=== PATIENT | female | born 1975 ===

== ENCOUNTER 2018-03-21 20:58 | Emergency (ER) | payer OTHER ==
[2018-03-21 21:32] VITALS: TEMP 98.8
--- NOTE | 2018-03-21 23:35 | ED PDOC ---
HPI: General Adult Time Seen by Provider: 03/21/18 21:18 Chief Complaint (Nursing): Abnormal Labs Chief Complaint (Provider): abnormal labs History Per: Patient History/Exam Limitations: no limitations Onset/Duration Of Symptoms: Days (x1 week ) Current Symptoms Are (Timing): Still Present Recently: Treated By A Physician Additional Complaint(s): Kimberley Smith is a 42 year old female, with a past medical history of anemia and hypothyroidism, who presents to the emergency department for low hemoglobin. Patient states last week she went to Dr. Mathis who did blood work and came back with a hemoglobin of 7. Patient reports feeling tired very easily, she also reports shortness of breath with exertion but feels normal at rest. Patient states she has heavy menstrual periods for long periods of time, last time it lasted x3 weeks and ended one week ago. She denies taking iron pills. She denies any vaginal bleeding, fever, chills, chest pain, dizziness or syncope. No further medical complaints. PMD: Shaik Mathis Past Medical History Reviewed: Historical Data, Nursing Documentation, Vital Signs Vital Signs: Last Vital Signs Temp 98.8 F 03/21/18 21:31 Pulse 67 03/22/18 01:19 Resp 16 03/22/18 01:19 BP 165/78 H 03/22/18 01:19 Pulse Ox 99 03/22/18 04:49 - Medical History PMH: Anemia, Hypothyroidism - Surgical History Surgical History: (x2) - Family History Family History: States: No Known Family Hx - Social History Current smoker - smoking cessation education provided: No Alcohol: None Drugs: Denies - Allergies Allergies/Adverse Reactions: Allergies Allergy/AdvReac Type Severity Reaction Status Date / Time No Known Allergies Allergy Verified 03/21/18 21:30 Review of Systems ROS Statement: Except As Marked, All Systems Reviewed And Found Negative Constitutional: Negative for: Fever, Chills Cardiovascular: Negative for: Chest Pain Respiratory: Positive for: Shortness of Breath (w/ exertion) Genitourinary Female: Negative for: Vaginal Bleeding Neurological: Negative for: Dizziness Physical Exam - Reviewed Nursing Documentation Reviewed: Yes Vital Signs Reviewed: Yes - Physical Exam Appears: Positive for: Non-toxic Head Exam: Positive for: ATRAUMATIC, NORMOCEPHALIC Skin: Positive for: Normal Color, Warm, Dry Eye Exam: Positive for: Normal appearance, EOMI, PERRL Neck: Positive for: Painless ROM, Supple Cardiovascular/Chest: Positive for: Regular Rate, Rhythm. Negative for: Murmur Respiratory: Positive for: Normal Breath Sounds. Negative for: Respiratory Distress Gastrointestinal/Abdominal: Positive for: Normal Exam, Soft. Negative for: Tenderness, Guarding, Rebound Back: Negative for: L CVA Tenderness, R CVA Tenderness, Vertebral Tenderness Extremity: Positive for: Normal ROM (upper and lower extremities). Negative for : Deformity, Swelling Neurologic/Psych: Positive for: Alert, Oriented. Negative for: Motor/Sensory Deficits - Laboratory Results Result Diagrams: 03/22/18 00:04 03/22/18 00:04 - ECG O2 Sat by Pulse Oximetry: 99 (RA) Pulse Ox Interpretation: Normal Medical Decision Making Medical Decision Making: Time: 21:18 Initial Impression: Anemia. Differential diagnosis includes acute on chronic anemia due to dysfunctional uteral bleeding. Initial Plan: --Type and screen --EKG --BMP --CBC w/ differential --PTT --PT --Reevaluation 00:00 -Patient will be endorsed to Dr. Jaimes, pending reevaluation. ----- Scribe Attestation: Documented by Edinson Nicolas, acting as a scribe for Anton Moreno MD. Provider Scribe Attestation: All medical record entries made by the Scribe were at my direction and personally dictated by me. I have reviewed the chart and agree that the record accurately reflects my personal performance of the history, physical exam, medical decision making, and the department course for this patient. I have also personally directed, reviewed, and agree with the discharge instructions and disposition. Disposition - Clinical Impression Clinical Impression: Anemia - Patient ED Disposition Is Patient to be Admitted: Transfer of Care Counseled Patient/Family Regarding: Studies Performed, Diagnosis - Disposition Disposition: Transfer of Care Disposition Time: 12:00 Condition: STABLE Instructions: Anemia Caused by Low Iron, Adult (DC) Forms: [employer] (Nepalese) Print Language: CYPRIOT Patient Signed Over To: Samson Jaimes Handoff Comments: pending reevaluation
--- NOTE | 2018-03-22 00:03 | ED PDOC ---
- Laboratory Results Result Diagrams: 03/22/18 00:04 03/22/18 00:04 - ECG O2 Sat by Pulse Oximetry: 99 (RA) Medical Decision Making Medical Decision Makin:00 -Patient endorsed to me by Dr. Moreno, pending labs. 01:15 -Discussed results with patient. Hgb is improving on its own. Patient advised to follow up with PMD as soon as possible. Patient is well appearing, ambulatory and stable upon discharge. Disposition - Clinical Impression Clinical Impression: Anemia - POA Present On Arrival: None - Disposition Disposition: Routine/Home Disposition Time: 01:15 Condition: STABLE Instructions: Anemia Caused by Low Iron, Adult (DC) Forms: [employer] ([place]) Print Language: ENGLISH
[2018-03-22 00:08] LABS: BASO # 0.1 K/uL (0.0-0.2); BASO % 0.9 % (0.0-2.0); EOS # 0.2 K/uL (0.0-0.7); EOS % 2.3 % (0.0-4.0); HEMOGLOBIN 7.4 g/dL (12.0-16.0); LYMPH # 1.9 K/uL (1.0-4.3); LYMPH % 19.2 % (20.0-40.0); MEAN CELL VOLUME 57.1 fl (81.0-99.0); MEAN CORPUSCULAR HEMOGLOBIN 16.5 pg (27.0-31.0); MEAN CORPUSCULAR HGB CONC 28.9 g/dL (33.0-37.0); MEAN PLATELET VOLUME 9.2 fl (7.2-11.7); NEUT # 6.8 K/uL (1.8-7.0); NEUT % 67.6 % (50.0-75.0); NRBC % 0.2 % (0.0-0.0); RBC 4.48 Mil/uL (3.80-5.20); RED CELL DISTRIBUTION WIDTH 22.3 % (11.5-14.5); WHITE BLOOD COUNT 10.1 K/uL (4.8-10.8)
[2018-03-22 00:25] LABS: PARTIAL THROMBOPLASTIN TIME 30.6 Seconds (25.6-37.1); PROTHROMBIN TIME 11.6 Seconds (9.8-13.1)
[2018-03-22 00:27] LABS: BLOOD UREA NITROGEN 15 mg/dl (7-17); GFR AFRICAN-AMERICAN > 60; GFR NON-AFRICAN AMERICAN > 60
[2018-03-22 01:20] VITALS: BP 165/78; PULSE 67; RESP 16
[2018-03-22 01:25] VITALS: O2SAT 99
--- NOTE | 2018-03-24 11:44 | CARD ---
APPROVED REPORT EKG Measurement Heart [id number] ID [id number] <Conclusion> Normal sinus rhythm Normal ECG
== END 2018-03-22 01:21 | disposition home or self-care (01) ==
LOC: H.ER 20:58
DX: D64.9 Anemia, unspecified (principal); N92.0 Excessive and frequent menstruation with regular cycle; E03.9 Hypothyroidism, unspecified

== ENCOUNTER 2018-03-24 18:08 | Observation (INO) | payer OTHER ==
--- NOTE | 2018-03-24 19:34 | ED PDOC ---
HPI: General Adult Time Seen by Provider: 03/24/18 19:27 Chief Complaint (Nursing): Abnormal Labs Chief Complaint (Provider): abnomral labs History Per: Patient Additional Complaint(s): 42-year-old female presents to emergency department for evaluation of anemia. Patient was seen 3 days ago and had a hemoglobin of 7.4. Prior to being seen 3 days ago she was told by her primary doctor that her hemoglobin was 7.0. Patient complains of fatigue and states that her menstrual cycle began yesterday and since then she feels worse. Patient has long-standing history of abnormal heavy periods. She denies any fever or chills at this time, no chest pain, shortness of breath or dyspnea on exertion. PMD: Dr. Mathis Past Medical History Reviewed: Historical Data Vital Signs: Last Vital Signs Temp 98.6 F 03/24/18 18:28 Pulse 86 03/24/18 18:28 Resp 16 03/24/18 18:28 BP 173/97 H 03/24/18 18:28 Pulse Ox 99 03/24/18 19:41 - Medical History PMH: Anemia, Hypothyroidism - Surgical History Surgical History: (x2) - Family History Family History: States: No Known Family Hx - Living Arrangements Living Arrangements: With Family - Social History Current smoker - smoking cessation education provided: No Alcohol: None Drugs: Denies - Allergies Allergies/Adverse Reactions: Allergies Allergy/AdvReac Type Severity Reaction Status Date / Time No Known Allergies Allergy Verified 03/21/18 21:30 Review of Systems ROS Statement: Except As Marked, All Systems Reviewed And Found Negative Constitutional: Positive for: Other (fatigue). Negative for: Fever, Chills Cardiovascular: Negative for: Chest Pain Respiratory: Negative for: Cough Gastrointestinal: Negative for: Nausea, Vomiting Genitourinary Female: Positive for: Vaginal Bleeding (currently menstruating) Neurological: Positive for: Dizziness. Negative for: Headache Physical Exam - Reviewed Nursing Documentation Reviewed: Yes Vital Signs Reviewed: Yes - Physical Exam Appears: Positive for: Well, Non-toxic, No Acute Distress Skin: Positive for: Normal Color. Negative for: Rash Eye Exam: Positive for: Normal appearance Cardiovascular/Chest: Positive for: Regular Rate, Rhythm Respiratory: Positive for: Normal Breath Sounds. Negative for: Wheezing, Respiratory Distress Gastrointestinal/Abdominal: Positive for: Soft. Negative for: Tenderness, Distended, Guarding, Rebound Extremity: Positive for: Normal ROM Neurologic/Psych: Positive for: Alert, Oriented - ECG O2 Sat by Pulse Oximetry: 99 Pulse Ox Interpretation: Normal Medical Decision Making Medical Decision Makin42 year old female with vaginal bleeding and anemia Plan: CXR EKG CBC CMP PT/PTT Type and crossmatch, 2 units packed RBC's IVF Urine test Urine dip Disposition - Clinical Impression Clinical Impression: Anemia - Patient ED Disposition Is Patient to be Admitted: Transfer of Care - Disposition Disposition: Transfer of Care Disposition Time: 19:46 Condition: FAIR Forms: [employer] (Kazakh) Patient Signed Over To: Dora Holman Handoff Comments: Signed out pending diagnostic testing results and final dispo
[2018-03-24 20:53] LABS: BASO # 0.2 K/uL (0.0-0.2); BASO % 1.8 % (0.0-2.0); EOS # 0.1 K/uL (0.0-0.7); EOS % 1.2 % (0.0-4.0); HEMOGLOBIN 7.7 g/dL (12.0-16.0); LYMPH # 1.9 K/uL (1.0-4.3); LYMPH % 15.1 % (20.0-40.0); MEAN CELL VOLUME 57.1 fl (81.0-99.0); MEAN CORPUSCULAR HEMOGLOBIN 16.2 pg (27.0-31.0); MEAN CORPUSCULAR HGB CONC 28.3 g/dL (33.0-37.0); MONO # 0.9 K/uL (0.0-0.8); MONO % 7.3 % (0.0-10.0); NEUT # 9.3 K/uL (1.8-7.0); NEUT % 74.6 % (50.0-75.0); RBC 4.73 Mil/uL (3.80-5.20); RED CELL DISTRIBUTION WIDTH 22.5 % (11.5-14.5); WHITE BLOOD COUNT 12.5 K/uL (4.8-10.8)
--- NOTE | 2018-03-24 21:01 | ED PDOC ---
- Laboratory Results Result Diagrams: 03/24/18 20:35 03/24/18 20:35 - ECG ECG: Positive for: Viewed By Me (reviewed by ED attending) ECG Rhythm: Positive for: Sinus Rhythm O2 Sat by Pulse Oximetry: 99 - Radiology X-Ray: Viewed By Me X-Ray Interpretation: No Acute Disease - Progress ED Course And Treament: Case endorsed to proposal lead writer from [place] pending labs, admission Consent obtained from patient for blood transfusion Case discussed with Dr. Sullivan, Hospitalist on-call, for admission Disposition - Clinical Impression Clinical Impression: Symptomatic anemia - POA Present On Arrival: None - Disposition Disposition: Admitted as In-Patient Disposition Time: 21:31 Condition: FAIR
[2018-03-24 21:04] LABS: ALB/GLOB RATIO 1.2 (1.0-2.1); ALBUMIN 4.3 g/dL (3.5-5.0); ALT/SGPT 27 U/L (9-52); AST/SGOT 48 U/L (14-36); BLOOD UREA NITROGEN 13 mg/dl (7-17); CALCIUM 8.5 mg/dL (8.4-10.2); GFR AFRICAN-AMERICAN > 60; GFR NON-AFRICAN AMERICAN > 60
[2018-03-24 21:25] LABS: PARTIAL THROMBOPLASTIN TIME 30.5 Seconds (25.6-37.1); PROTHROMBIN TIME 11.5 Seconds (9.8-13.1)
--- NOTE | 2018-03-24 22:26 | CP.PCM.HP ---
History of Present Illness - History of Present Illness History of Present Illness: CC: Anemia This is a 42 year old female with pmh of heavy menstrual bleeding for years, hypothyroidism in the past, who presents to the ED today with the complaint of anemia. The patient was seen in the ED 3 days ago and was found to have a hemoglobin of 7.4. The patient states that she was discharged and since then she has been feeling fatigued and lightheaded, worse today as her menstrual cycle started yesterday. In the ED, she was found to have stable vitals. Hg today is 7.7, HCT 27.0. She also has microcytic anemia consistent with iron deficiency. The patient is being placed on observation overnight for blood transfusion and monitoring. Patient denies chest pain, shortness of breath, fevers, chills, nausea, vomiting, diarrhea, headache. All of the patient's and/ or family's questions were answered at the bedside. PMD: Dr. Mathis Present on Admission - Present on Admission Any Indicators Present on Admission: No History of DVT/PE: No History of Uncontrolled Diabetes: No Review of Systems - Review of Systems Review of Systems: A 12 point review of systems was conducted and found to be negative other than what was mentioned in the HPI. Past Patient History - Infectious Disease Hx of Infectious Diseases: None - Past Medical History & Family History Past Medical History?: Yes Past Family History: Reviewed and not pertinent - Past Social History Smoking Status: Never Smoked Alcohol: None Drugs: Denies - ENDOCRINE/METABOLIC Hx Hypothyroidism: Yes - HEMATOLOGICAL/ONCOLOGICAL Hx Anemia: Yes - PSYCHIATRIC Hx Substance Use: No Meds Allergies/Adverse Reactions: Allergies Allergy/AdvReac Type Severity Reaction Status Date / Time No Known Allergies Allergy Verified 03/21/18 21:30 Physical Exam - Additional Findings Additional findings: Physical exam: Constitutional- cooperative, awake, alert Head- NCAT, PERRL Eye- PERRL, EOMI ENT- normal exam, MMM. Neck- normal inspection, supple, no JVD Respiratory- CTAB, no wheezes rales rhonchi Cardiovascular- RRR, +S1, +S2 no MRG GI/Abdominal- normal bowel sounds, soft, no mass, no hsm Skin- warm, dry Extremities Exam- normal capillary refill, normal inspection Neurological Exam- alert, awake, oriented Psych- normal mood, normal affect Results - Vital Signs Recent Vital Signs: Last Vital Signs Temp 98.6 F 03/24/18 18:28 Pulse 86 03/24/18 18:28 Resp 16 03/24/18 18:28 BP 173/97 H 03/24/18 18:28 Pulse Ox 99 03/24/18 21:31 - Labs Result Diagrams: 03/24/18 20:35 03/24/18 20:35 Labs: Laboratory Results - last 24 hr 03/24/18 03/24/18 03/24/18 19:55 20:35 20:35 WBC 12.5 H RBC 4.73 Hgb 7.7 L Hct 27.0 L MCV 57.1 L MCH 16.2 L MCHC 28.3 L RDW 22.5 H Plt Count 454 H MPV 9.0 Neut % (Auto) 74.6 Lymph % (Auto) 15.1 L [place] % (Auto) 7.3 Eos % (Auto) 1.2 Baso % (Auto) 1.8 Neut # (Auto) 9.3 H Lymph # (Auto) 1.9 [place] # (Auto) 0.9 H Eos # (Auto) 0.1 Baso # (Auto) 0.2 PT INR APTT Sodium 142 Potassium 3.8 Chloride 105 Carbon Dioxide 23 Anion Gap 18 BUN 13 Creatinine 0.5 L Est GFR ( Amer) > 60 Est GFR (Non-Af Amer) > 60 Random Glucose 94 Calcium 8.5 Total Bilirubin 0.8 AST 48 H ALT 27 Alkaline Phosphatase 93 Total Protein 7.9 Albumin 4.3 Globulin 3.6 Albumin/Globulin Ratio 1.2 Blood Type O POSITIVE Antibody Screen Negative Crossmatch See Detail BBK History Checked Patient has bt 03/24/18 20:35 WBC RBC Hgb Hct MCV MCH MCHC RDW Plt Count MPV Neut % (Auto) Lymph % (Auto) [place] % (Auto) Eos % (Auto) Baso % (Auto) Neut # (Auto) Lymph # (Auto) [place] # (Auto) Eos # (Auto) Baso # (Auto) PT 11.5 INR 1.0 APTT 30.5 Sodium Potassium Chloride Carbon Dioxide Anion Gap BUN Creatinine Est GFR ( Amer) Est GFR (Non-Af Amer) Random Glucose Calcium Total Bilirubin AST ALT Alkaline Phosphatase Total Protein Albumin Globulin Albumin/Globulin Ratio Blood Type Antibody Screen Crossmatch BBK History Checked Assessment & Plan - Assessment and Plan (Free Text) Plan: This is a 42 year old female with pmh of heavy menstrual bleeding for years, hypothyroidism in the past, who presents to the ED today with the complaint of anemia. The patient was seen in the ED 3 days ago and was found to have a hemoglobin of 7.4. The patient states that she was discharged and since then she has been feeling fatigued and lightheaded, worse today as her menstrual cycle started yesterday. In the ED, she was found to have stable vitals. Hg today is 7.7, HCT 27.0. She also has microcytic anemia consistent with iron deficiency. The patient is being placed on observation overnight for blood transfusion and monitoring. 1) Acute on chronic Microcytic anemia secondary to heavy menstrual bleeding - Place on med/surg observation - PRBC transfusion overnight with CBC recheck in AM - Monitor vitals - Check iron/TIBC 2) Hypothyroidism - Check TSH, Free T4 - Synthroid 3) Mild leukocytosis - No evidence of infection otherwise - monitor 4) DVT prophylaxis - SCDs only as pt has anemia and menstrual bleeding
[2018-03-25 01:08] LABS: IRON 13 ug/dL (37-170)
[2018-03-25 01:18] LABS: % IRON SATURATION 3 % (20-55); TOTAL IRON BINDING CAPACITY 477 ug/dL (250-450)
[2018-03-25 06:19] LABS: HEMOGLOBIN 9.2 g/dL (12.0-16.0); MEAN CELL VOLUME 61.4 fl (81.0-99.0); MEAN CORPUSCULAR HEMOGLOBIN 18.3 pg (27.0-31.0); MEAN CORPUSCULAR HGB CONC 29.9 g/dL (33.0-37.0); RBC 5.04 Mil/uL (3.80-5.20); WHITE BLOOD COUNT 9.4 K/uL (4.8-10.8)
[2018-03-25] MEDS ORDERED: Levothyroxine 150 MCG TAB PO SCH (06:30)
[2018-03-25 06:50] LABS: BLOOD UREA NITROGEN 10 mg/dl (7-17); CALCIUM 8.4 mg/dL (8.4-10.2); GFR AFRICAN-AMERICAN > 60; GFR NON-AFRICAN AMERICAN > 60
[2018-03-25] MEDS ORDERED: Tranexamic Acid 1,000 MG in Sodium Chloride 0.9% 100 ML IVPB ONE (07:32)
--- NOTE | 2018-03-25 08:40 | CARD ---
APPROVED REPORT EKG Measurement Heart [id number] <Conclusion> Normal sinus rhythm Normal ECG
[2018-03-25 09:01] VITALS: BP 158/94; PULSE 70; RESP 20; TEMP 98; O2SAT 97
--- NOTE | 2018-03-25 09:05 | RAD ---
HISTORY: clearance COMPARISON: No prior. FINDINGS: LUNGS: No active pulmonary disease. PLEURA: No significant pleural effusion identified, no pneumothorax apparent. CARDIOVASCULAR: Normal. OSSEOUS STRUCTURES: No significant abnormalities. VISUALIZED UPPER ABDOMEN: Normal. OTHER FINDINGS: None. IMPRESSION: No active disease.
--- NOTE | 2018-03-25 12:19 | CP.PCM.DIS ---
<Sultan Shanae - Last Filed: 03/25/18 14:24> Provider - Provider Date of Admission: 03/24/18 21:55 Attending physician: Maximino Sullivan DO Time Spent in preparation of Discharge (in minutes): 30 Diagnosis - Discharge Diagnosis (1) Symptomatic anemia Status: Resolved (2) Abnormal uterine bleeding (AUB) Status: Chronic (3) Left ovarian cyst Status: Chronic (4) Hypertension Status: Acute Hospital Course - Lab Results Lab Results: Most Recent Lab Values WBC 9.4 K/uL (4.8-10.8) 03/25/18 05:35 RBC 5.04 Mil/uL (3.80-5.20) 03/25/18 05:35 Hgb 9.2 g/dL (12.0-16.0) L 03/25/18 05:35 Hct 30.9 % (34.0-47.0) L 03/25/18 05:35 MCV 61.4 fl (81.0-99.0) L D 03/25/18 05:35 MCH 18.3 pg (27.0-31.0) L 03/25/18 05:35 MCHC 29.9 g/dL (33.0-37.0) L 03/25/18 05:35 RDW 27.0 % (11.5-14.5) H 03/25/18 05:35 Plt Count 430 K/uL (130-400) H 03/25/18 05:35 MPV 9.0 fl (7.2-11.7) 03/24/18 20:35 Neut % (Auto) 74.6 % (50.0-75.0) 03/24/18 20:35 Lymph % (Auto) 15.1 % (20.0-40.0) L 03/24/18 20:35 [place] % (Auto) 7.3 % (0.0-10.0) 03/24/18 20:35 Eos % (Auto) 1.2 % (0.0-4.0) 03/24/18 20:35 Baso % (Auto) 1.8 % (0.0-2.0) 03/24/18 20:35 Neut # (Auto) 9.3 K/uL (1.8-7.0) H 03/24/18 20:35 Lymph # (Auto) 1.9 K/uL (1.0-4.3) 03/24/18 20:35 [place] # (Auto) 0.9 K/uL (0.0-0.8) H 03/24/18 20:35 Eos # (Auto) 0.1 K/uL (0.0-0.7) 03/24/18 20:35 Baso # (Auto) 0.2 K/uL (0.0-0.2) 03/24/18 20:35 PT 11.5 Seconds (9.8-13.1) 03/24/18 20:35 INR 1.0 (0.9-1.2) 03/24/18 20:35 APTT 30.5 Seconds (25.6-37.1) 03/24/18 20:35 Sodium 139 mmol/l (132-148) 03/25/18 05:35 Potassium 3.6 MMOL/L (3.6-5.0) 03/25/18 05:35 Chloride 104 mmol/L (98-107) 03/25/18 05:35 Carbon Dioxide 25 mmol/L (22-30) 03/25/18 05:35 Anion Gap 14 (10-20) 03/25/18 05:35 BUN 10 mg/dl (7-17) 03/25/18 05:35 Creatinine 0.5 mg/dl (0.7-1.2) L 03/25/18 05:35 Est GFR ( Amer) > 60 03/25/18 05:35 Est GFR (Non-Af Amer) > 60 03/25/18 05:35 Random Glucose 96 mg/dL (65-105) 03/25/18 05:35 Calcium 8.4 mg/dL (8.4-10.2) 03/25/18 05:35 Iron 13 ug/dL (37-170) L 03/25/18 00:40 TIBC 477 ug/dL (250-450) H 03/25/18 00:40 % Saturation 3 % (20-55) L 03/25/18 00:40 Total Bilirubin 0.8 mg/dl (0.2-1.3) 03/24/18 20:35 AST 48 U/L (14-36) H 03/24/18 20:35 ALT 27 U/L (9-52) 03/24/18 20:35 Alkaline Phosphatase 93 U/L (38-126) 03/24/18 20:35 Total Protein 7.9 G/DL (6.3-8.2) 03/24/18 20:35 Albumin 4.3 g/dL (3.5-5.0) 03/24/18 20:35 Globulin 3.6 gm/dL (2.2-3.9) 03/24/18 20:35 Albumin/Globulin Ratio 1.2 (1.0-2.1) 03/24/18 20:35 Free T4 0.96 ng/dL (0.78-2.19) 03/25/18 05:35 TSH 3rd Generation 3.16 mIU/ML (0.46-4.68) 03/25/18 05:35 Blood Type O POSITIVE 03/24/18 19:55 Antibody Screen Negative 03/24/18 19:55 Crossmatch See Detail 03/24/18 19:55 BBK History Checked Patient has bt 03/24/18 19:55 - Hospital Course Hospital Course: 42 year old female with pmh of heavy irregular menstrual bleeding for years, hypothyroidism in the past, who presents to the ED yesterday with the complaint of anemia. The patient was seen in the ED 4 days ago and was found to have a hemoglobin of 7.4. The patient states that she was discharged and since then she has been feeling fatigued and lightheaded. In the ED, she was found to have stable vitals. Hg was 7.7, HCT 27.0. She also has microcytic anemia consistent with iron deficiency. Pt was admitted to inpatient and received 1 unit of prbc. Pt's H&H 9.2/30.9 today. Pt has transvaginal US today which showed complex left ovarian cyst measuring 4.3x 4.8x 5.7 cm. Recommend follow up with transvaginal US in 6-8 weeks by radiologist. Power Regulator was consulted and was recommended to f/u with outpatient green building energy engineer. Pt also had elevated blood pressure readings with multiple measurements and started on amlodipine 5 mg po daily. Pt is medically stable to discharge home. Advised to f/u w/ PMD Dr. Mathis in 1 week and enterprise security architect as soon as possible. Medications on discharge: Amlodipine 5 mg po daily #30 Ferrous sulfate 325 mg po BID #60 Continue with levothyroxine 50 mcg po daily Discharge Exam - Head Exam Head Exam: NORMAL INSPECTION - Eye Exam Eye Exam: Normal appearance - ENT Exam ENT Exam: Mucous Membranes Moist, Normal Oropharynx - Respiratory Exam Respiratory Exam: Clear to PA & Lateral, NORMAL BREATHING PATTERN. absent: Rales, Rhonchi, Wheezes - Cardiovascular Exam Cardiovascular Exam: REGULAR RHYTHM, RRR, +S1, +S2 - GI/Abdominal Exam GI & Abdominal Exam: Normal Bowel Sounds, Soft. absent: Tenderness - Extremities Exam Extremities exam: normal capillary refill, normal inspection, pedal pulses present - Neurological Exam Neurological exam: Alert, Oriented x3 - Psychiatric Exam Psychiatric exam: Normal Affect, Normal Mood - Skin Skin Exam: Dry, Normal Color, Warm Discharge Plan - Discharge Medications Prescriptions: amLODIPine [Norvasc] 5 mg PO DAILY #30 tab Ferrous Sulfate [Feosol] 325 mg PO BID #60 tab Levothyroxine [Synthroid] 50 mcg PO DAILY #30 tab - Follow Up Plan Condition: FAIR Disposition: HOME/ ROUTINE Instructions: Normocytic Normochromic Anemia (DC) Additional Instructions: [facility] appt wanda ff up with PMD DR Mathis in 1 wk Referrals: [facility] [Outside] Becca Benitez MD [Staff Provider] - <Yelena Giordano - Last Filed: 03/25/18 15:50> Provider - Provider Date of Admission: 03/24/18 21:55 Attending physician: Maximino Sullivan DO Hospital Course - Lab Results Lab Results: Most Recent Lab Values WBC 9.4 K/uL (4.8-10.8) 03/25/18 05:35 RBC 5.04 Mil/uL (3.80-5.20) 03/25/18 05:35 Hgb 9.2 g/dL (12.0-16.0) L 03/25/18 05:35 Hct 30.9 % (34.0-47.0) L 03/25/18 05:35 MCV 61.4 fl (81.0-99.0) L D 03/25/18 05:35 MCH 18.3 pg (27.0-31.0) L 03/25/18 05:35 MCHC 29.9 g/dL (33.0-37.0) L 03/25/18 05:35 RDW 27.0 % (11.5-14.5) H 03/25/18 05:35 Plt Count 430 K/uL (130-400) H 03/25/18 05:35 MPV 9.0 fl (7.2-11.7) 03/24/18 20:35 Neut % (Auto) 74.6 % (50.0-75.0) 03/24/18 20:35 Lymph % (Auto) 15.1 % (20.0-40.0) L 03/24/18 20:35 [place] % (Auto) 7.3 % (0.0-10.0) 03/24/18 20:35 Eos % (Auto) 1.2 % (0.0-4.0) 03/24/18 20:35 Baso % (Auto) 1.8 % (0.0-2.0) 03/24/18 20:35 Neut # (Auto) 9.3 K/uL (1.8-7.0) H 03/24/18 20:35 Lymph # (Auto) 1.9 K/uL (1.0-4.3) 03/24/18 20:35 [place] # (Auto) 0.9 K/uL (0.0-0.8) H 03/24/18 20:35 Eos # (Auto) 0.1 K/uL (0.0-0.7) 03/24/18 20:35 Baso # (Auto) 0.2 K/uL (0.0-0.2) 03/24/18 20:35 PT 11.5 Seconds (9.8-13.1) 03/24/18 20:35 INR 1.0 (0.9-1.2) 03/24/18 20:35 APTT 30.5 Seconds (25.6-37.1) 03/24/18 20:35 Sodium 139 mmol/l (132-148) 03/25/18 05:35 Potassium 3.6 MMOL/L (3.6-5.0) 03/25/18 05:35 Chloride 104 mmol/L (98-107) 03/25/18 05:35 Carbon Dioxide 25 mmol/L (22-30) 03/25/18 05:35 Anion Gap 14 (10-20) 03/25/18 05:35 BUN 10 mg/dl (7-17) 03/25/18 05:35 Creatinine 0.5 mg/dl (0.7-1.2) L 03/25/18 05:35 Est GFR ( Amer) > 60 03/25/18 05:35 Est GFR (Non-Af Amer) > 60 03/25/18 05:35 Random Glucose 96 mg/dL (65-105) 03/25/18 05:35 Calcium 8.4 mg/dL (8.4-10.2) 03/25/18 05:35 Iron 13 ug/dL (37-170) L 03/25/18 00:40 TIBC 477 ug/dL (250-450) H 03/25/18 00:40 % Saturation 3 % (20-55) L 03/25/18 00:40 Total Bilirubin 0.8 mg/dl (0.2-1.3) 03/24/18 20:35 AST 48 U/L (14-36) H 03/24/18 20:35 ALT 27 U/L (9-52) 03/24/18 20:35 Alkaline Phosphatase 93 U/L (38-126) 03/24/18 20:35 Total Protein 7.9 G/DL (6.3-8.2) 03/24/18 20:35 Albumin 4.3 g/dL (3.5-5.0) 03/24/18 20:35 Globulin 3.6 gm/dL (2.2-3.9) 03/24/18 20:35 Albumin/Globulin Ratio 1.2 (1.0-2.1) 03/24/18 20:35 Free T4 0.96 ng/dL (0.78-2.19) 03/25/18 05:35 TSH 3rd Generation 3.16 mIU/ML (0.46-4.68) 03/25/18 05:35 Blood Type O POSITIVE 03/24/18 19:55 Antibody Screen Negative 03/24/18 19:55 Crossmatch See Detail 03/24/18 19:55 BBK History Checked Patient has bt 03/24/18 19:55 Attending/Attestation - Attestation I have personally seen and examined this patient.: Yes I have fully participated in the care of the patient.: Yes I have reviewed all pertinent clinical information, including history, physical exam and plan: Yes Notes (Text): 1.Symptomatic Anemia 2.AUB 3.Ovarian Cyst 4.HTN 5.HYpothyroidism - Pt transfused , 1 unit PRBC - rpt Hgb=9.2 - IV venofer given -PRINT LINE FEEDER consulted- discussed case with Dr Gonzales- rec outpt ff up - started pt on Norvasc, Ferrous Sulfate - cont Levothyroxine - ff up [facility] wanda, rpt Pelvic Sono in 6-8 wks - ff up with PMD wanda
--- NOTE | 2018-03-25 12:26 | US ---
HISTORY: AUB COMPARISON: None available. TECHNIQUE: Transabdominal and transvaginal FINDINGS: UTERUS: Measures 10.1 x 6.6 x 4.4 cm. Heterogeneous echotexture. Fundal intramural fibroid, 3.2 x 3.7 x 2.2 cm. No other uterine mass identified. ENDOMETRIUM: Measures 11 mm in diameter. Unremarkable. CERVIX: No cervical abnormality identified. RIGHT OVARY: Not visualized LEFT OVARY: Measures 5.7 x 6.2 x 3.3 cm. No solid mass. Normal flow. Complex cyst measuring 4.3 x 4.8 x 5.7 cm, with a mildly thickened internal septation. No flow is demonstrated within the septation on color Doppler interrogation. Followup is advised 6-8 weeks with transvaginal pelvic ultrasound. FREE FLUID: No significant free fluid noted. OTHER FINDINGS: None. IMPRESSION: Complex left ovarian cyst, 5.7 cm. Recommend follow-up with transvaginal ultrasound in 6-8 weeks. 3.7 cm fundal intramural uterine fibroid. No additional abnormality.
== END 2018-03-25 14:49 | disposition home or self-care (01) ==
LOC: H.ER 18:08 → H.ERHOLD 21:55 → INTOOBSV 21:55 → H.MEDSURG1 03-25 01:25
PROVIDERS: ADMIT Internal Medicine; ATTEND Internal Medicine
DX: D50.9 Iron deficiency anemia, unspecified (principal); E03.9 Hypothyroidism, unspecified; I10 Essential (primary) hypertension; N83.292 Other ovarian cyst, left side; N93.9 Abnormal uterine and vaginal bleeding, unspecified; N92.0 Excessive and frequent menstruation with regular cycle; R42 Dizziness and giddiness; R53.83 Other fatigue
CPT/HCPCS: 36430; 71045; 76830; 76856; 80048; 80053; 81025; 83540; 83550; 84439; 84443; 85025; 85027; 85610; 85730; 86850; 86900; 86920; 93005; 99285; G0378; J1756; P9051

== ENCOUNTER 2018-12-02 06:17 | Day surgery (SDC) | payer SELFPAY ==
[2018-12-01 08:11] VITALS: BMI 40.8
[2018-12-02] MEDS ORDERED: Lactated Ringer's 1,000 ML IV ONE (07:11)
[2018-12-02 07:46] LABS: BASO # 0.1 K/uL (0.0-0.2); BASO % 1.2 % (0.0-2.0); EOS # 0.1 K/uL (0.0-0.7); EOS % 1.7 % (0.0-4.0); HEMOGLOBIN 11.1 g/dL (12.0-16.0); LYMPH # 1.5 K/uL (1.0-4.3); LYMPH % 17.9 % (20.0-40.0); MEAN CORPUSCULAR HGB CONC 31.5 g/dL (33.0-37.0); MEAN PLATELET VOLUME 9.1 fl (7.2-11.7); MONO # 0.7 K/uL (0.0-0.8); MONO % 8.5 % (0.0-10.0); NEUT % 70.7 % (50.0-75.0); RBC 5.06 Mil/uL (3.80-5.20); RED CELL DISTRIBUTION WIDTH 21.3 % (11.5-14.5); WHITE BLOOD COUNT 8.4 K/uL (4.8-10.8)
[2018-12-02] MEDS ORDERED: Silver Nitrate Topical - Stick ONE (07:47)
[2018-12-02] MEDS ORDERED: Strong Iodine Topical Sol. 5%-10% ONE (07:48)
[2018-12-02] MEDS ORDERED: Ferric Subsulfate Sol(60 mL) ONE (07:48)
--- NOTE | 2018-12-02 07:48 | CP.PCM.HP ---
History of Present Illness - History of Present Illness History of Present Illness: 29-year-old with PMH of anemia secondary to heavy menstrual bleeding/abnormal uterine bleeding, HTN, and hypothyroid disease presents for hysteroscopy/D+C. Hysteroscopy/D+C was recommended due to insufficient sampling on endometrial biopsy and possible endometrial polyp. Endometrial thickening on sono (07/24) 25.7. Patient was previously admitted for blood transfusion on 03/2018 2/2 to abnormal uterine bleeding. LMP 11/27/18; irregular - heavy bleeding for multiple months followed by amenorrhea for multiple months. METs > 4, EKG (09/29/18) NSR, CXR (09/29/18) no active pulmonary disease. She denies chest pain with and without activity, shortness of breath, dizziness, recent fever or illness, vomiting, and diarrhea. PMD: Dr. Mathis, [place] OBGYN: Dr. Navarro, [facility] OBHx: C/S x2 ('04,'08- twins), D+C , miscarriage PMH: Anemia requiring transfusion 2/2 abnormal uterine bleeding, hypothyroid controlled on levo, HTN Meds: Levothyroxine, Losartan, Amlodipine, Ferrous sulfate FHx: adopted, no information available Social: denies illicit drugs, alcohol and tobacco. 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 Allergies: denies Present on Admission - Present on Admission Any Indicators Present on Admission: No Review of Systems - Review of Systems Review of Systems: all other systems reviewed and negative unless otherwise noted in HPI Past Patient History - Infectious Disease Hx of Infectious Diseases: None - Past Medical History & Family History Past Medical History?: Yes - Past Social History Smoking Status: Never Smoked - CARDIAC Hx Cardiac Disorders: Yes Hx Hypertension: Yes - PULMONARY Hx Respiratory Disorders: No - NEUROLOGICAL Hx Neurological Disorder: No - HEENT Hx HEENT Problems: Yes Other/Comment: uses eyeglasses - RENAL Hx Chronic Kidney Disease: No - ENDOCRINE/METABOLIC Hx Endocrine Disorders: Yes Hx Diabetes Mellitus Type 2: (gestational ) Hx Hypothyroidism: Yes - HEMATOLOGICAL/ONCOLOGICAL Hx Blood Disorders: Yes Hx Anemia: Yes Hx Blood Transfusions: Yes Hx Blood Transfusion Reaction: No - INTEGUMENTARY Hx Dermatological Problems: No - MUSCULOSKELETAL/RHEUMATOLOGICAL Hx Musculoskeletal Disorders: No Hx Falls: No - GASTROINTESTINAL Hx Gastrointestinal Disorders: No - GENITOURINARY/GYNECOLOGICAL Hx Genitourinary Disorders: No - PSYCHIATRIC Hx Emotional Abuse: No Hx Physical Abuse: No - SURGICAL HISTORY Hx Surgeries: Yes Hx Section: Yes (x2) Hx Dilation and Curettage: Yes Other/Comment: 2x - ANESTHESIA Hx Anesthesia: Yes Hx Anesthesia Reactions: Yes Hx Malignant Hyperthermia: No Has any member of the family had a problem w/ anesthesia?: (does not know, she's adopted) Meds Allergies/Adverse Reactions: Allergies Allergy/AdvReac Type Severity Reaction Status Date / Time No Known Allergies Allergy Verified 12/02/18 06:35 Physical Exam - Constitutional Appears: Well, Non-toxic, No Acute Distress - Head Exam Head Exam: ATRAUMATIC - Eye Exam Eye Exam: Normal appearance - ENT Exam ENT Exam: Mucous Membranes Moist - Neck Exam Neck exam: Positive for: Normal Inspection - Respiratory Exam Respiratory Exam: absent: Respiratory Distress - Cardiovascular Exam Cardiovascular Exam: RRR, +S1, +S2 - GI/Abdominal Exam GI & Abdominal Exam: Normal Bowel Sounds, Soft. absent: Tenderness Additional comments: obese - Extremities Exam Extremities exam: Positive for: normal inspection - Neurological Exam Neurological exam: Alert, Normal Gait, Oriented x3 - Psychiatric Exam Psychiatric exam: Normal Affect, Normal Mood - Skin Skin Exam: Dry, Normal Color, Warm Results - Vital Signs Recent Vital Signs: Last Vital Signs Temp 97.9 F 12/02/18 06:44 Pulse 58 L 12/02/18 06:54 Resp 18 12/02/18 06:44 BP 112/66 12/02/18 06:44 Pulse Ox 100 12/02/18 06:44 - Labs Result Diagrams: 12/02/18 07:05 Assessment & Plan - Assessment and Plan (Free Text) Assessment: 29-year-old with PMH of anemia secondary to heavy menstrual bleeding/abnormal uterine bleeding, HTN, and hypothyroid disease presents for hysteroscopy/D+C and possible polypectomy. Plan: 1. Hysteroscopy/D+C -Possibly polypectomy -Post-op plan as per Dr Navarro 2. DVT Prophylaxis -SCDs
[2018-12-02] MEDS ORDERED: Propofol 10 mg/ml Inj (20 ML) ONE (08:03)
[2018-12-02] MEDS ORDERED: Silver Nitrate Topical - Stick TOP ONE (08:15)
[2018-12-02] MEDS ORDERED: Lactated Ringer's 500 ML IV ONE ×2 (09:00→09:25)
[2018-12-02] MEDS ORDERED: ePHEDrine 50 mg/ml Inj ONE (09:11)
[2018-12-02] MEDS ORDERED: Lactated Ringer's 1,000 ML IV SCH (09:45)
[2018-12-02 10:16] VITALS: O2SAT 97
[2018-12-02 10:44] VITALS: BP 97/58; PULSE 54; RESP 14; TEMP 98
--- NOTE | 2018-12-03 00:05 | OP ---
PROCEDURE DATE: 12/02/2018 PREOPERATIVE DIAGNOSES: Menorrhagia with anemia and possible endometrial polyp. POSTOPERATIVE DIAGNOSES: Menorrhagia, anemia and endometrial polyp. SURGEON: Gerri Esquivel MD ESTIMATED BLOOD LOSS: 10 mL. URINE OUTPUT: Approximately 20 mL of clear urine drained with red rubber catheter. INTRAVENOUS FLUIDS: 700 mL of lactated Ringer's. FINDINGS: The uterus was anteverted, mildly enlarged with normal adnexa noted and negative for masses. On hysteroscopic evaluation, a thickened endometrium was noted with a small approximately 0.5-cm polyp seen on the anterior uterine wall. DESCRIPTION OF PROCEDURE: The patient was taken to the operating room and was prepped and draped in the usual sterile fashion in the dorsal lithotomy position after general anesthesia was given without difficulty. A bimanual exam was performed with the findings noted above. A weighted speculum was then placed in the vaginal vault, and the cervix was then well visualized. The anterior lip of the cervix was grasped with a single-tooth tenaculum. The uterus was then sounded to a depth of 11 cm. The endocervical canal was then progressively dilated with Hanks and Hegar dilators to allow for advancement of the hysteroscope. The hysteroscope was then introduced into the uterine cavity using sterile saline as the distending media that was attached with the camera. The endometrial cavity was distended with fluid, and the cavity was well visualized. A small polyp was then seen on the anterior uterine wall, and thickened endometrium was noted throughout. The coronal areas were visualized bilaterally with corresponding tubal ostia. The small polyp was then removed using the MyoSure device. Several pictures were taken of the endometrial cavity and following this, the hysteroscope was then removed from the cavity. A large curette was then used to obtain a moderate amount of tissue, which was then sent for pathology for evaluation. The single-tooth tenaculum was then removed, and a small laceration was seen on the anterior lip of the cervix. This was then repaired with two [id number] sutures using a 2-0 Vicryl suture. Good hemostasis was noted. Prior to suture replacement, Monsel and silver nitrate were also used. All instruments were then removed from the vaginal vault. The patient was repositioned, cleaned and awakened from anesthesia. She was sent to the recovery room in stable condition and would be discharged home on Motrin for pain and informed to continue pelvic rest and follow up in the office in two weeks for postoperative evaluation and review of pathology results. Gerri Esquivel MD [facility] # [id number]
== END 2018-12-02 11:14 | disposition home or self-care (01) ==
LOC: H.OPSURG 06:17
PROVIDERS: ATTEND Obstetrics & Gynecology
DX: N93.9 Abnormal uterine and vaginal bleeding, unspecified (principal); E11.9 Type 2 diabetes mellitus without complications; E78.5 Hyperlipidemia, unspecified; E03.9 Hypothyroidism, unspecified; I10 Essential (primary) hypertension; N84.0 Polyp of corpus uteri; N92.0 Excessive and frequent menstruation with regular cycle; D50.0 Iron deficiency anemia secondary to blood loss (chronic)
CPT/HCPCS: 36415; 58558; 85025; 88305; J1885; J2001; J2405; J2704; J2765; J3010; J7120